=== PATIENT | female | born 1980 | race Caucasian/White ===

== ENCOUNTER 2017-04-11 17:18 | Emergency (ER) | payer OTHER, SELFPAY | END 2017-04-11 18:02 | disposition home or self-care (01) | PROVIDERS: Emergency Provider Emergency Medicine; Family Provider Emergency Medicine; Visit Provider Emergency Medicine | DX: S63.502A Unspecified sprain of left wrist, initial encounter (principal); S93.402A Sprain of unspecified ligament of left ankle, initial encounter; F17.210 Nicotine dependence, cigarettes, uncomplicated; W10.9XXA Fall (on) (from) unspecified stairs and steps, initial encounter; Y92.019 Unspecified place in single-family (private) house as the place of occurrence of the external cause; Z88.2 Allergy status to sulfonamides; K21.9 Gastro-esophageal reflux disease without esophagitis; E78.5 Hyperlipidemia, unspecified; F41.8 Other specified anxiety disorders | CPT/HCPCS: 73110; 73610; 99282 ==

== ENCOUNTER → 2017-05-20 13:01 | Outpatient (REF) | payer OTHER, SELFPAY ==
[2017-05-20 19:58] LABS: Amphetamine/Metha Screen,Urine Negative ng/mL (<1000); Barbiturates Screen,Urine Negative ng/mL (<200); Benzodiazepines Screen,Urine Negative ng/mL (200); Cannabinoid Screen,Urine Negative ng/mL (<50); Cocaine Screen,Urine Negative ng/g (<300); Methadone Screen,Urine Negative ng/mL (<300); Opiate Screen,Urine Positive ng/mL (<300); Phencyclidine Screen,Urine Negative ng/mL (<25)
== END ==
LOC: LAB 13:01
PROVIDERS: Visit Provider Emergency Medicine
DX: Z79.899 Other long term (current) drug therapy (principal)
CPT/HCPCS: 80305

== ENCOUNTER → 2017-06-12 08:49 | Outpatient (CLI) | payer OTHER, SELFPAY ==
--- NOTE | 2017-06-12 08:50 | XR_ITS ---
XR DEXA axial skeleton HISTORY: ITS.REASON: Osteopenia ORDERING PHYSICIAN: Enzo Riggs MD PATIENT AGE: 36 years COMPARISON: 12/06/2015 FINDINGS: The BMD measured at the left femoral neck is 0.792 g/cm squared with a T score of -1.8. This is considered Osteopenic according to the World Health Organization criteria. Fracture risk is Moderate. Treatment is advised. The L1 L4 density has a T score of -1.2 consistent with osteopenia. IMPRESSION: Osteopenia with moderate fracture risk. The lumbar spine density has increased by 1.3% and the hip density has decreased by 1.5% compared to the previous exam. Recommend follow-up exam in June 2019
--- NOTE | 2017-06-12 08:50 | XR_ITS ---
EXAM: XR thoracic spine 3V HISTORY: ITS.REASON: Back Pain COMPARISON: None FINDINGS: There is mild lower thoracic scoliosis convex left which measures 8 degrees by the Rouse technique. No fracture or dislocation. No congenital anomaly apparent. Minimal disc calcification is present at T9-T10 suggesting mild degenerative disc disease IMPRESSION: 1. Mild levoscoliosis 2. Mild thoracic spondylosis
== END ==
PROVIDERS: Family Provider Emergency Medicine; PCP Emergency Medicine; Visit Provider Emergency Medicine
DX: M85.80 Other specified disorders of bone density and structure, unspecified site (principal); M54.9 Dorsalgia, unspecified
CPT/HCPCS: 72072; 77080

== ENCOUNTER → 2017-06-16 12:23 | Outpatient (REF) | payer OTHER, SELFPAY ==
[2017-06-17 14:32] LABS: Amphetamine/Metha Screen,Urine Negative ng/mL (<1000); Barbiturates Screen,Urine Negative ng/mL (<200); Benzodiazepines Screen,Urine Negative ng/mL (200); Cannabinoid Screen,Urine Negative ng/mL (<50); Cocaine Screen,Urine Negative ng/g (<300); Methadone Screen,Urine Negative ng/mL (<300); Opiate Screen,Urine Positive ng/mL (<300); Phencyclidine Screen,Urine Negative ng/mL (<25)
== END ==
LOC: LAB 12:23
PROVIDERS: Visit Provider Emergency Medicine
DX: M54.9 Dorsalgia, unspecified (principal); Z79.899 Other long term (current) drug therapy
CPT/HCPCS: 80305

== ENCOUNTER 2017-07-17 09:27 | Emergency (ER) | payer OTHER, SELFPAY ==
[2017-07-17 09:30] VITALS: BP 108/69; PULSE 79; RESP 18; TEMP 36.9; O2SAT 98; BMI 21.2
--- NOTE | 2017-07-17 09:44 | HMH.EDUTC ---
[facility] [place] Clinical Impression: Eye problems Vomiting Qualifiers: Vomiting type: unspecified Vomiting Intractability: unspecified Nausea presence: with nausea Qualified Code(s): R11.2 - Nausea with vomiting, unspecified Disposition: Home, Self-Care Condition on Discharge: Good Instructions: DI for Hordeolum, Hordeolum Additional Instructions: Warm Compresses to eye Follow up with Dr Campuzano today, Call office for appointment [phone] Avoid make up Baby shampoo and warm water to clean eye and eyelids Return if needed Follow up with family doctor in 24-48 hours if no improvement or worsening of symptoms Referrals: Enzo Riggs MD [Primary Care Provider] - Fawad Campuzano [Other] (Follow up with Dr Campuzano today if you can get an appointment) Forms: Work/School Release Time of Disposition: 09:59 Medical Decision Making - Medical Records Medical records reviewed: Yes: I reviewed the patient's medical records. - Gilberto Inquiry Pt receiving controlled substance: No Gilberto was queried for this patient: No Vital Signs: 07/17/17 09:30 Temperature 98.4 F Temperature Source Temporal Artery Scan Pulse Rate [Right Brachial] 79 Respiratory Rate 18 Blood Pressure [Right Arm] 108/69 Blood Pressure Mean [Right Arm] 82 Blood Pressure Source [Right Arm] Automatic Cuff Blood Pressure Position [Right Arm] Sitting 02 Sat by Pulse Oximetry 98 Oxygen Delivery Method Room Air - Lab Data Lab results reviewed: Yes: I reviewed the patient's lab results. [facility] [place] - General Stated complaint: Vomiting,left eye swelled Time Seen by Provider: 07/17/17 09:30 Mode of Arrival: Family Vehicle Source of Information: Patient Limitations: No Limitations Description of Symptoms (Recalled from Triage Doc. by RN): c/o vomiting and swollen left eye HEENT Symptoms (Recalled from RN notes): Yes Resp Symptoms (Recalled from RN notes): No Skin Symptoms (Recalled from RN notes): No MS Symptoms (Recalled from RN notes): No Functional Status (Recalled from RN notes): n/a - History of Present Illness Provider Complaint: Patient states that she noticed that she was having some swelling in her left eye State that she feels like she has a knot in the left corner of her eye under her eyelid State that area is tender and she has been rubbing her eye alot. State that she woke up this morning and she had some vomiting State that she wasn't sure if there was a stomach bug going around - Related Data Home Medications Medication Instructions Recorded Confirmed Calcium Carbonate/Vitamin D3 1 tab PO DAILY 07/17/17 07/17/17 [Calcium 600 + Vit D Tablet] Hydrocodone/Acetaminophen 1 each PO BID 07/17/17 07/17/17 [Hydrocodone-Acetamin 5-325 mg] Allergies Allergy/AdvReac Type Severity Reaction Status Date / Time Sulfa (Sulfonamide Allergy Severe BURN ON Verified 06/16/17 15:58 Antibiotics) THE INSIDE [SULFA (SULFONAMIDE ANTIBIOTICS)] aspirin [ASPIRIN] Allergy Intermediate I-HIVES Verified 06/16/17 15:58 Estrogens [ESTROGENS] Allergy Intermediate BREAKOUT Verified 06/16/17 15:58 tramadol [TRAMADOL] Allergy Intermediate NAUSEATED Verified 06/16/17 15:58 - Worker's Comp Is this a Worker's Comp case?: No [facility] History I have reviewed the patient's past medical history: Yes Medical History: Reports:: Anxiety, Cancer, Osteoporosis Other Medical History: Reports: Fibromyalgia, Osteoporosis Other Surgeries: Yes: Cancer Surgery, Hysterectomy-Total Amputation: No Fractures: No - Social History Smoking Status: Current every day smoker Tobacco Type: cigarettes # Packs/Day (cigarettes): 2 #Yrs smoked (if former smoker): 24 Alcohol Intake: never Alcohol Intake Frequency:: 0-2 drinks per day Substance Use Type: denies use - Psychiatric History Expresses thoughts of harming self/others: None Suicide Plan Description: No Plan Pschychiatric History:: Reports:: Anxiety Family Hx:: Heart Attack, Cancer Comment: Mot
--- NOTE | 2017-07-17 09:47 | ED_ITS ---
[facility] – [place] Disposition Clinical Impression: Eye problems Vomiting Qualifiers: Vomiting type: unspecified Vomiting Intractability: unspecified Nausea presence : with nausea Qualified Code(s): R11.2 - Nausea with vomiting, unspecified Disposition: Home, Self-Care Condition on Discharge: Good Instructions: DI for Hordeolum, Hordeolum Additional Instructions: Warm Compresses to eye Follow up with Dr Campuzano today, Call office for appointment [phone] Avoid make up Baby shampoo and warm water to clean eye and eyelids Return if needed Follow up with family doctor in 24-48 hours if no improvement or worsening of symptoms Referrals: Enzo Riggs MD [Primary Care Provider] - Fawad Campuzano [Other] (Follow up with Dr Campuzano today if you can get an appointment) Forms: Work/School Release Time of Disposition: 09:59 Medical Decision Making - Medical Records Medical records reviewed: Yes: I reviewed the patient's medical records. - Gilberto Inquiry Pt receiving controlled substance: No Gilberto was queried for this patient: No Vital Signs: 07/17/17 09:30 Temperature 98.4 F Temperature Source Temporal Artery Scan Pulse Rate [Right Brachial] 79 Respiratory Rate 18 Blood Pressure [Right Arm] 108/69 Blood Pressure Mean [Right Arm] 82 Blood Pressure Source [Right Arm] Automatic Cuff Blood Pressure Position [Right Arm] Sitting 02 Sat by Pulse Oximetry 98 Oxygen Delivery Method Room Air - Lab Data Lab results reviewed: Yes: I reviewed the patient's lab results. [facility] – [place] HPI - General Stated complaint: Vomiting,left eye swelled Time Seen by Provider: 07/17/17 09:30 Mode of Arrival: Family Vehicle Source of Information: Patient Limitations: No Limitations Description of Symptoms (Recalled from Triage Doc. by RN): c/o vomiting and swollen left eye HEENT Symptoms (Recalled from RN notes): Yes Resp Symptoms (Recalled from RN notes): No Skin Symptoms (Recalled from RN notes): No MS Symptoms (Recalled from RN notes): No Functional Status (Recalled from RN notes): n/a - History of Present Illness Provider Complaint: Patient states that she noticed that she was having some swelling in her left eye State that she feels like she has a knot in the left corner of her eye under her eyelid State that area is tender and she has been rubbing her eye alot. State that she woke up this morning and she had some vomiting State that she wasn't sure if there was a stomach bug going around - Related Data Home Medications Medication Instructions Recorded Confirmed Calcium Carbonate/Vitamin D3 1 tab PO DAILY 07/17/17 07/17/17 [Calcium 600 + Vit D Tablet] Hydrocodone/Acetaminophen 1 each PO BID 07/17/17 07/17/17 [Hydrocodone-Acetamin 5-325 mg] Allergies Allergy/AdvReac Type Severity Reaction Status Date / Time Sulfa (Sulfonamide Allergy Severe BURN ON Verified 06/16/17 15:58 Antibiotics) THE INSIDE [SULFA (SULFONAMIDE ANTIBIOTICS)] aspirin [ASPIRIN] Allergy Intermediate I-HIVES Verified 06/16/17 15:58 Estrogens [ESTROGENS] Allergy Intermediate BREAKOUT Verified 06/16/17 15:58 tramadol [TRAMADOL] Allergy Intermediate NAUSEATED Verified 06/16/17 15:58 - Worker's Comp Is this a Worker's Comp case?: No [facility] History I have reviewed the patient's past medical history: Yes Medical History: Repor
[2017-07-17 10:07] VITALS: BP 108/69; PULSE 79; RESP 18; TEMP 36.9; O2SAT 98
== END 2017-07-17 10:10 | disposition home or self-care (01) ==
PROVIDERS: Emergency Provider Nurse Practitioner; Family Provider Emergency Medicine; PCP Emergency Medicine
DX: R11.2 Nausea with vomiting, unspecified (principal); H57.9 Unspecified disorder of eye and adnexa; M79.7 Fibromyalgia; Z88.2 Allergy status to sulfonamides; M85.80 Other specified disorders of bone density and structure, unspecified site; F17.210 Nicotine dependence, cigarettes, uncomplicated
CPT/HCPCS: 99201

== ENCOUNTER → 2017-07-20 15:43 | Outpatient (REF) | payer OTHER, SELFPAY ==
[2017-07-20 18:24] LABS: Amphetamine/Metha Screen,Urine Negative ng/mL (<1000); Barbiturates Screen,Urine Negative ng/mL (<200); Benzodiazepines Screen,Urine Negative ng/mL (200); Cannabinoid Screen,Urine Negative ng/mL (<50); Cocaine Screen,Urine Negative ng/g (<300); Methadone Screen,Urine Negative ng/mL (<300); Opiate Screen,Urine Positive ng/mL (<300); Phencyclidine Screen,Urine Negative ng/mL (<25)
== END ==
LOC: LAB 15:43
PROVIDERS: Visit Provider Nurse Practitioner Family
DX: Z79.899 Other long term (current) drug therapy (principal)
CPT/HCPCS: 80305

== ENCOUNTER → 2018-05-31 13:39 | Outpatient (CLI) | payer OTHER, SELFPAY ==
[2018-05-31 14:55] LABS: Amphetamine/Metha Screen,Urine Negative ng/mL (<1000); Barbiturates Screen,Urine Negative ng/mL (<200); Benzodiazepines Screen,Urine Negative ng/mL (<200); Cannabinoid Screen,Urine Negative ng/mL (<50); Cocaine Screen,Urine Negative ng/mL (<300); Methadone Screen,Urine Negative ng/mL (<300); Opiate Screen,Urine Positive ng/mL (<300); Phencyclidine Screen,Urine Negative ng/mL (<25)
== END ==
PROVIDERS: Visit Provider Emergency Medicine
DX: Z79.899 Other long term (current) drug therapy (principal)
CPT/HCPCS: 80305

== ENCOUNTER → 2018-06-08 09:15 | Outpatient (CLI) | payer OTHER, SELFPAY ==
--- NOTE | 2018-06-08 09:21 | XR_ITS ---
XR scoliosis survey CLINICAL INDICATION: ITS.REASON: back pain ORDERING PHYSICIAN: Enzo Riggs MD PATIENT AGE: 37 years Comparison: None FINDINGS: There is minimal upper thoracic curvature convex right at 4 degrees and minimal lower thoracic curvature convex left degrees. There is mild degenerative disc disease in the midthoracic spine. No bony congenital anomalies evident. IMPRESSION: Minimal thoracic scoliosis as described above
== END ==
PROVIDERS: PCP Emergency Medicine; Visit Provider Emergency Medicine
DX: M54.9 Dorsalgia, unspecified (principal)
CPT/HCPCS: 72081

== ENCOUNTER → 2018-06-28 14:08 | Outpatient (CLI) | payer OTHER, SELFPAY ==
[2018-06-28 14:35] LABS: Amphetamine/Metha Screen,Urine Negative ng/mL (<1000); Barbiturates Screen,Urine Negative ng/mL (<200); Benzodiazepines Screen,Urine Negative ng/mL (<200); Cannabinoid Screen,Urine Negative ng/mL (<50); Cocaine Screen,Urine Negative ng/mL (<300); Methadone Screen,Urine Negative ng/mL (<300); Opiate Screen,Urine Positive ng/mL (<300); Phencyclidine Screen,Urine Negative ng/mL (<25)
== END ==
PROVIDERS: Visit Provider Emergency Medicine
DX: Z79.899 Other long term (current) drug therapy (principal)
CPT/HCPCS: 80305

== ENCOUNTER → 2018-08-27 15:54 | Outpatient (CLI) | payer OTHER, SELFPAY ==
[2018-08-27 16:24] LABS: Amphetamine/Metha Screen,Urine Negative ng/mL (<1000); Barbiturates Screen,Urine Negative ng/mL (<200); Benzodiazepines Screen,Urine Negative ng/mL (<200); Cannabinoid Screen,Urine Negative ng/mL (<50); Cocaine Screen,Urine Negative ng/mL (<300); Methadone Screen,Urine Negative ng/mL (<300); Opiate Screen,Urine Positive ng/mL (<300); Phencyclidine Screen,Urine Negative ng/mL (<25)
== END ==
PROVIDERS: Visit Provider Emergency Medicine
DX: Z79.899 Other long term (current) drug therapy (principal)
CPT/HCPCS: 80305

== ENCOUNTER → 2018-09-14 12:50 | Outpatient (CLI) | payer OTHER, SELFPAY | PROVIDERS: PCP Emergency Medicine; Visit Provider Emergency Medicine | DX: M54.9 Dorsalgia, unspecified (principal) ==

== ENCOUNTER → 2018-10-27 13:51 | Outpatient (CLI) | payer OTHER, SELFPAY ==
[2018-10-27 15:06] LABS: Amphetamine/Metha Screen,Urine Negative ng/mL (<1000); Barbiturates Screen,Urine Negative ng/mL (<200); Benzodiazepines Screen,Urine Negative ng/mL (<200); Cannabinoid Screen,Urine Negative ng/mL (<50); Cocaine Screen,Urine Negative ng/mL (<300); Methadone Screen,Urine Negative ng/mL (<300); Opiate Screen,Urine Negative ng/mL (<300); Phencyclidine Screen,Urine Negative ng/mL (<25)
[2018-11-04 08:15] LABS: Opiates Negative (Cutoff=100)
== END ==
PROVIDERS: Visit Provider Emergency Medicine
DX: Z79.891 Long term (current) use of opiate analgesic (principal); E22.2 Syndrome of inappropriate secretion of antidiuretic hormone; Z79.899 Other long term (current) drug therapy
CPT/HCPCS: 80305; 80361; 80365; G0480

== ENCOUNTER → 2018-12-22 17:38 | Outpatient (CLI) | payer OTHER, SELFPAY ==
[2018-12-22 18:47] LABS: Amphetamine/Metha Screen,Urine Negative ng/mL (<1000); Barbiturates Screen,Urine Negative ng/mL (<200); Benzodiazepines Screen,Urine Negative ng/mL (<200); Cannabinoid Screen,Urine Negative ng/mL (<50); Cocaine Screen,Urine Negative ng/mL (<300); Methadone Screen,Urine Negative ng/mL (<300); Opiate Screen,Urine Positive ng/mL (<300); Phencyclidine Screen,Urine Negative ng/mL (<25)
== END ==
PROVIDERS: Visit Provider Emergency Medicine
DX: M54.16 Radiculopathy, lumbar region (principal)
CPT/HCPCS: 80305

== ENCOUNTER → 2019-02-18 16:51 | Outpatient (CLI) | payer OTHER, SELFPAY ==
[2019-02-18 20:15] LABS: Amphetamine/Metha Screen,Urine Negative ng/mL (<1000); Barbiturates Screen,Urine Negative ng/mL (<200); Benzodiazepines Screen,Urine Negative ng/mL (<200); Cannabinoid Screen,Urine Negative ng/mL (<50); Cocaine Screen,Urine Negative ng/mL (<300); Methadone Screen,Urine Negative ng/mL (<300); Opiate Screen,Urine Positive ng/mL (<300); Phencyclidine Screen,Urine Negative ng/mL (<25)
== END ==
PROVIDERS: Visit Provider Emergency Medicine
DX: Z79.899 Other long term (current) drug therapy (principal)
CPT/HCPCS: 80305

== ENCOUNTER → 2019-04-29 14:24 | Outpatient (CLI) | payer OTHER, SELFPAY ==
[2019-04-29 15:53] LABS: Amphetamine/Metha Screen,Urine Negative ng/mL (<1000); Barbiturates Screen,Urine Negative ng/mL (<200); Benzodiazepines Screen,Urine Negative ng/mL (<200); Cannabinoid Screen,Urine Negative ng/mL (<50); Cocaine Screen,Urine Negative ng/mL (<300); Methadone Screen,Urine Negative ng/mL (<300); Opiate Screen,Urine Positive ng/mL (<300); Phencyclidine Screen,Urine Negative ng/mL (<25)
== END ==
PROVIDERS: Visit Provider Emergency Medicine
DX: Z79.899 Other long term (current) drug therapy (principal)
CPT/HCPCS: 80305

== ENCOUNTER → 2019-05-25 18:24 | Outpatient (CLI) | payer OTHER, SELFPAY ==
[2019-05-25 19:34] LABS: Amphetamine/Metha Screen,Urine Negative ng/mL (<1000); Barbiturates Screen,Urine Negative ng/mL (<200); Benzodiazepines Screen,Urine Negative ng/mL (<200); Cannabinoid Screen,Urine Negative ng/mL (<50); Cocaine Screen,Urine Negative ng/mL (<300); Methadone Screen,Urine Negative ng/mL (<300); Opiate Screen,Urine Positive ng/mL (<300); Phencyclidine Screen,Urine Negative ng/mL (<25)
== END ==
PROVIDERS: Visit Provider Emergency Medicine
DX: R11.10 Vomiting, unspecified (principal)
CPT/HCPCS: 80305

== ENCOUNTER → 2019-12-14 07:55 | Outpatient (CLI) | payer OTHER, SELFPAY ==
--- NOTE | 2019-12-14 08:01 | MR_ITS ---
PROCEDURE: MR LUMBAR SPINE WO CON CLINICAL INDICATION: back pain LBP XYRS. FELL OUT OF TOBACCO BARN YEARS AGO AND PATIENT STATES HER VERTEBRA FUSED TOGETHER. 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 3-D MIP and myelographic images are also rendered and reviewed FINDINGS: There is normal alignment. The spinal cord ends at the T12-L1 level. There are only 4 lumbar segments. No acute fracture or dislocation is evident. The disc spaces are well preserved. L1-L2, L2-L3, and L3-L4 have an unremarkable appearance. There is only minimal bulging disc at L4/S1. No disc herniation canal stenosis or other significant anomaly is evident. IMPRESSION: Essentially unremarkable MRI of the lumbar spine. There are 4 lumbar segments. There is minimal bulging disc at L4/S1 the with overall no significant change compared to the previous exam. No canal stenosis or extruded herniated disc evident Dictated by: Reji Arellano MD 12/15/2019 13:33 Reji Arellano MD in [place] 12/15/2019 13:33
== END ==
PROVIDERS: PCP Emergency Medicine; Visit Provider Emergency Medicine
DX: M54.16 Radiculopathy, lumbar region (principal)
CPT/HCPCS: 72148; 76376

== ENCOUNTER → 2020-01-19 15:20 | Outpatient (POV) | payer OTHER, SELFPAY ==
[2020-01-19 15:40] VITALS: BP 121/81; PULSE 84; RESP 20; TEMP 36.4; O2SAT 98; BMI 20.5
--- NOTE | 2020-01-19 16:10 | HMH.PMCON ---
Assessment and Plan (1) Back pain Status: Chronic Category: Medical Code(s): M54.9 - Dorsalgia, unspecified (2) Sacroiliitis Status: Chronic Category: Medical Code(s): M46.1 - Sacroiliitis, not elsewhere classified - Assessment and plan all Dx Assessment and Plan for all problems:: Patient reports that she is not interested in injective therapy at this time. She and I did discuss that she likely has sacroiliitis, however, the patient is not been getting any relief from her injections. The only other option that we could offer the patient is possible implanted device following a lumbar epidural steroid injection. She does have tenderness noted over bilateral SI joints along with a positive Vale, Linsey's, distraction test. She and I also discussed possible corner lock procedure. Chiropractic therapy seems to be the only thing given her relief at this time. She is managed with oral medications as well her primary care provider. Patient was given educational information regarding corner lock and spinal cord stimulation at her request. We will plan to see her back in the clinic if she does decide to undergo injective therapy. She has been instructed to contact clinic if she has any concerns. The patient and I specifically discussed risk factors for COVID19. These risks include, but are not limited to age greater than 60, heart or lung disease, diabetes, immunosuppression, and travel. We also discussed NSAIDs may worsen COVID19 infection or symptoms. Patient should not use NSAIDs to treat COVID19 signs or symptoms. Patient was also informed that any type of corticosteroid of any form (oral or injection) will decrease the patient's immune system response and may increase the likelihood of COVID19 infection and symptoms. HPI - Data of Consult Patient: new to practice Consult date: 01/19/20 Requesting Physician: Sophie Barrera APRN Primary Care Provider: Enzo Riggs MD - Consult Narrative Reason for consult: Low back pain, bilateral hip pain, bilateral groin pain History of present illness: Ms. Mayes is a 39 year old female who presents today for consultation for chronic low back pain with radiation into her bilateral hips and bilateral groin. Patient reports that she fell off of the tobacco barn many years ago and had a coccygeal fracture. She says that she is had chronic pain since then. Patient says that she does feel herself off balance when walking leaning more to the right side. She did see angelique fine and pain management for injections in the past. She says she did do 2 rounds of SI injections along with epidural steroid injections and got no relief. Patient says she, in fact, had worsening pain after the injections. She did try physical therapy with no relief. Patient has had chiropractic therapy which she says does give her relief, however. She does rate her pain a 6 out of 10 today. She is managed with hydrocodone and gabapentin per Dr. Riggs. CC: Sophie Barrera APRN [facility] History I have reviewed the patient's past medical history: Yes Medical History: Reports:: Anxiety, Osteoporosis Denies:: Cancer, Diabetes Mellitus Type 1, Diabetes Mellitus Type 2, MRSA *Have you ever received a pneumonia vaccine?: No *Have you received a flu vaccine this season?: No Other Medical History: Reports: Fibromyalgia, Osteoporosis Other Surgeries: Yes: Appendectomy, Cancer Surgery, Hysterectomy-Total, Other (partial liverectomy) Amputation: No Fractures: No - *Social History Smoking Status: Current every day smoker Tobacco Type: cigarettes # Packs/Day (cigarettes): 1 #Yrs smoked (if former smoker): 24 Alcohol Intake: current Alcohol Intake Frequency:: 0-2 drinks per day Substance Use Type: denies use *Occupational Status:: employed Housing: house Household Members: other *Travel in the last 8 weeks: None - Psychiatric History Pschychiatric History:: Reports:: Anxiety Family Hx:: Heart Attack
== END ==
PROVIDERS: PCP Emergency Medicine; Visit Provider Clinical Nurse Specialist Family Health
DX: M54.9 Dorsalgia, unspecified (principal); M46.1 Sacroiliitis, not elsewhere classified
CPT/HCPCS: 99202

== ENCOUNTER → 2020-05-07 13:27 | Outpatient (CLI) | payer OTHER, SELFPAY ==
[2020-05-07 20:13] LABS: Amphetamine/Metha Screen,Urine Negative ng/ml (<1000)
[2020-05-07 20:14] LABS: Barbiturates Screen,Urine Negative ng/ml (<200)
[2020-05-07 20:15] LABS: Benzodiazepines Screen,Urine Negative ng/ml (<200); Cannabinoid Screen,Urine Negative ng/ml (<50)
[2020-05-07 20:18] LABS: Cocaine Screen,Urine Negative ng/ml (<300); Methadone Screen,Urine Negative ng/ml (<300)
[2020-05-07 20:19] LABS: Opiate Screen,Urine Positive ng/ml (<300)
[2020-05-07 20:20] LABS: Phencyclidine Screen,Urine Negative ng/ml (<25)
== END ==
PROVIDERS: Visit Provider Emergency Medicine
DX: Z79.899 Other long term (current) drug therapy (principal)
CPT/HCPCS: 80305

== ENCOUNTER → 2020-07-03 14:38 | Outpatient (CLI) | payer OTHER, SELFPAY ==
[2020-07-03 14:59] LABS: Barbiturates Screen,Urine Negative ng/ml (<200)
[2020-07-03 15:00] LABS: Amphetamine/Metha Screen,Urine Negative ng/ml (<1000); Benzodiazepines Screen,Urine Negative ng/ml (<200)
[2020-07-03 15:01] LABS: Cannabinoid Screen,Urine Negative ng/ml (<50)
[2020-07-03 15:02] LABS: Cocaine Screen,Urine Negative ng/ml (<300); Methadone Screen,Urine Negative ng/ml (<300)
[2020-07-03 15:03] LABS: Opiate Screen,Urine Positive ng/ml (<300)
[2020-07-03 15:04] LABS: Phencyclidine Screen,Urine Negative ng/ml (<25)
== END ==
PROVIDERS: Visit Provider Emergency Medicine
DX: Z79.899 Other long term (current) drug therapy (principal)
CPT/HCPCS: 80305

== ENCOUNTER → 2020-09-03 13:47 | Outpatient (CLI) | payer OTHER, SELFPAY ==
[2020-09-03 14:32] LABS: Barbiturates Screen,Urine Negative ng/ml (<200)
[2020-09-03 14:33] LABS: Amphetamine/Metha Screen,Urine Negative ng/ml (<1000); Benzodiazepines Screen,Urine Negative ng/ml (<200)
[2020-09-03 14:34] LABS: Cannabinoid Screen,Urine Negative ng/ml (<50)
[2020-09-03 14:35] LABS: Cocaine Screen,Urine Negative ng/ml (<300); Methadone Screen,Urine Negative ng/ml (<300)
[2020-09-03 14:36] LABS: Opiate Screen,Urine Positive ng/ml (<300); Phencyclidine Screen,Urine Negative ng/ml (<25)
== END ==
PROVIDERS: Visit Provider Emergency Medicine
DX: M46.1 Sacroiliitis, not elsewhere classified (principal)
CPT/HCPCS: 80305

== ENCOUNTER → 2020-11-29 08:51 | Outpatient (CLI) | payer OTHER, SELFPAY ==
[2020-11-29 09:39] LABS: Amphetamine/Metha Screen,Urine Negative ng/ml (<1000)
[2020-11-29 09:40] LABS: Barbiturates Screen,Urine Negative ng/ml (<200); Benzodiazepines Screen,Urine Negative ng/ml (<200)
[2020-11-29 09:41] LABS: Cannabinoid Screen,Urine Negative ng/ml (<50); Cocaine Screen,Urine Negative ng/ml (<300)
[2020-11-29 09:42] LABS: Methadone Screen,Urine Negative ng/ml (<300)
[2020-11-29 09:43] LABS: Opiate Screen,Urine Positive ng/ml (<300); Phencyclidine Screen,Urine Negative ng/ml (<25)
== END ==
PROVIDERS: Visit Provider Emergency Medicine
DX: M46.1 Sacroiliitis, not elsewhere classified (principal)
CPT/HCPCS: 80305

== ENCOUNTER → 2021-01-23 18:02 | Outpatient (CLI) | payer OTHER, SELFPAY ==
[2021-01-23 19:20] LABS: Amphetamine/Metha Screen,Urine Negative ng/ml (<1000)
[2021-01-23 19:21] LABS: Barbiturates Screen,Urine Negative ng/ml (<200); Benzodiazepines Screen,Urine Negative ng/ml (<200)
[2021-01-23 19:22] LABS: Cannabinoid Screen,Urine Negative ng/ml (<50)
[2021-01-23 19:23] LABS: Cocaine Screen,Urine Negative ng/ml (<300); Methadone Screen,Urine Negative ng/ml (<300)
[2021-01-23 19:24] LABS: Opiate Screen,Urine Positive ng/ml (<300)
[2021-01-23 19:25] LABS: Phencyclidine Screen,Urine Negative ng/ml (<25)
== END ==
PROVIDERS: Visit Provider Emergency Medicine
DX: Z79.899 Other long term (current) drug therapy (principal)
CPT/HCPCS: 80305

== ENCOUNTER → 2021-03-19 13:53 | Outpatient (CLI) | payer OTHER, SELFPAY ==
[2021-03-19 14:31] LABS: Amphetamine/Metha Screen,Urine Negative ng/ml (<1000); Barbiturates Screen,Urine Negative ng/ml (<200); Benzodiazepines Screen,Urine Negative ng/ml (<200); Cannabinoid Screen,Urine Negative ng/ml (<50); Cocaine Screen,Urine Negative ng/ml (<300); Methadone Screen,Urine Negative ng/ml (<300); Opiate Screen,Urine Positive ng/ml (<300); Phencyclidine Screen,Urine Negative ng/ml (<25)
== END ==
PROVIDERS: Visit Provider Emergency Medicine
DX: M54.9 Dorsalgia, unspecified (principal)
CPT/HCPCS: 80305

== ENCOUNTER → 2021-05-15 17:57 | Outpatient (CLI) | payer OTHER, SELFPAY ==
[2021-05-15 17:47] LABS: Amphetamine/Metha Screen,Urine Negative ng/ml (<1000); Basophils # 0.1 K/mm3 (0-0.2); Basophils % 1.7 % (0.1-2.0); Eosinophils # 0.2 K/mm3 (0.0-0.4); Eosinophils % 2.7 % (0.1-12.0); Hemoglobin 14.4 g/dL (12.2-16.2); Lymphocytes # 3.2 K/mm3 (0.7-4.5); Lymphocytes % 44.9 % (10-50); Mean Corpuscular HGB Conc 31.2 g/dL (31.8-35.4); Mean Corpuscular Hemoglobin 29.9 pg (27.0-31.2); Mean Corpuscular Volume 95.9 fl (81-99); Mean Platelet Volume 9.5 fl (7.4-10.4); Monocytes # 0.5 K/mm3 (0.1-1.0); Monocytes % 6.4 % (1.7-9.3); Neutrophils # 3.2 K/mm3 (1.8-7.8); Neutrophils % 44.2 % (37.0-80.0); Platelet Count 370 K/mm3 (142-424); White Blood Count 7.2 K/mm3 (4.8-10.8)
[2021-05-15 17:48] LABS: Barbiturates Screen,Urine Negative ng/ml (<200); Benzodiazepines Screen,Urine Negative ng/ml (<200)
[2021-05-15 17:49] LABS: Cannabinoid Screen,Urine Negative ng/ml (<50); Cocaine Screen,Urine Negative ng/ml (<300)
[2021-05-15 17:50] LABS: Methadone Screen,Urine Negative ng/ml (<300)
[2021-05-15 17:51] LABS: Opiate Screen,Urine Positive ng/ml (<300); Phencyclidine Screen,Urine Negative ng/ml (<25)
[2021-05-15 18:05] LABS: Alanine Aminotransferase 15 U/L (12-78); Albumin Level 4.8 g/dl (3.5-5.0); Albumin/Globulin Ratio 1.8 (1.1-1.8); Alkaline Phosphatase 76 U/L (38-126); Anion Gap 12.8 mEq/L (5-15); Aspartate Amino Transferase 25 U/L (14-36); Bilirubin,Total 0.4 mg/dl (0.2-1.3); Blood Urea Nitrogen 9 mg/dl (7-17); Carbon Dioxide 28 mmol/L (22.0-30.0); Chloride 101 mmol/L (98-107); Chol/HDL Ratio 5.7 (1-3.5); Cholesterol 238 mg/dl (140-200); Estimated Glomerular Filt Rate 111 ml/min (>60); GFR (African American) 134 ML/MIN (>60); Globulin 2.7 g/dL (1.3-3.2); Glucose 83 mg/dl (74-100); HDL Cholesterol 42 mg/dl (40-60); Potassium 4.8 mmoL/L (3.5-5.1); Sodium 137 mmol/L (136-145); Total Protein,Serum 7.5 g/dl (6.3-8.2); Triglycerides 250 mg/dl (30-150); VLDL Cholesterol 50 mg/dL (0-40)
[2021-05-15 18:16] LABS: Direct LDL Cholesterol 135.17 mg/dL (100-129)
[2021-05-15 18:21] LABS: Free T4 (Free Thyroxine) 1.12 ng/dl (0.78-2.19)
[2021-05-15 18:22] LABS: 25-OH Vitamin D, Total 25.2 ng/mL (30-100)
[2021-05-15 18:36] LABS: Thyroid Stimulating Hormone 1.85 uIU/mL (0.465-4.68)
== END ==
PROVIDERS: Visit Provider Emergency Medicine
DX: Z00.00 Encounter for general adult medical examination without abnormal findings (principal); Z79.899 Other long term (current) drug therapy; E55.9 Vitamin D deficiency, unspecified
CPT/HCPCS: 80053; 80061; 80305; 82306; 84439; 84443; 85025

== ENCOUNTER → 2021-10-28 15:08 | Outpatient (CLI) | payer OTHER, SELFPAY ==
[2021-10-28 15:12] LABS: Amphetamine/Metha Screen,Urine Negative ng/ml (<1000)
[2021-10-28 15:13] LABS: Barbiturates Screen,Urine Negative ng/ml (<200); Cannabinoid Screen,Urine Negative ng/ml (<50)
[2021-10-28 15:14] LABS: Benzodiazepines Screen,Urine Negative ng/ml (<200)
[2021-10-28 15:15] LABS: Cocaine Screen,Urine Negative ng/ml (<300); Methadone Screen,Urine Negative ng/ml (<300)
[2021-10-28 15:16] LABS: Opiate Screen,Urine Positive ng/ml (<300)
[2021-10-28 15:18] LABS: Phencyclidine Screen,Urine Negative ng/ml (<25)
== END ==
PROVIDERS: Visit Provider Emergency Medicine
DX: Z79.899 Other long term (current) drug therapy (principal)
CPT/HCPCS: 80305

== ENCOUNTER → 2021-12-25 06:15 | Outpatient (CLI) | payer OTHER, SELFPAY ==
[2021-12-25 18:23] LABS: Amphetamine/Metha Screen,Urine Negative ng/ml (<1000); Barbiturates Screen,Urine Negative ng/ml (<200)
[2021-12-25 18:24] LABS: Benzodiazepines Screen,Urine Negative ng/ml (<200)
[2021-12-25 18:25] LABS: Cannabinoid Screen,Urine Negative ng/ml (<50); Cocaine Screen,Urine Negative ng/ml (<300)
[2021-12-25 18:26] LABS: Methadone Screen,Urine Negative ng/ml (<300); Opiate Screen,Urine Positive ng/ml (<300)
[2021-12-25 18:27] LABS: Phencyclidine Screen,Urine Negative ng/ml (<25)
== END ==
PROVIDERS: PCP Emergency Medicine; Visit Provider Emergency Medicine
DX: Z79.899 Other long term (current) drug therapy (principal)
CPT/HCPCS: 80305

== ENCOUNTER → 2022-02-21 13:07 | Outpatient (CLI) | payer OTHER, SELFPAY ==
[2022-02-21 18:26] LABS: Amphetamine/Metha Screen,Urine Negative ng/ml (<1000)
[2022-02-21 18:27] LABS: Barbiturates Screen,Urine Negative ng/ml (<200); Benzodiazepines Screen,Urine Negative ng/ml (<200)
[2022-02-21 18:31] LABS: Cannabinoid Screen,Urine Negative ng/ml (<50); Cocaine Screen,Urine Negative ng/ml (<300)
[2022-02-21 18:32] LABS: Methadone Screen,Urine Negative ng/ml (<300)
[2022-02-21 18:33] LABS: Opiate Screen,Urine Positive ng/ml (<300); Phencyclidine Screen,Urine Negative ng/ml (<25)
== END ==
PROVIDERS: PCP Emergency Medicine; Visit Provider Emergency Medicine
DX: Z76.0 Encounter for issue of repeat prescription (principal); Z79.899 Other long term (current) drug therapy
CPT/HCPCS: 80305

== ENCOUNTER → 2022-04-21 13:00 | Outpatient (CLI) | payer OTHER, SELFPAY ==
[2022-04-21 16:38] LABS: Amphetamine/Metha Screen,Urine Negative ng/ml (<1000)
[2022-04-21 16:39] LABS: Barbiturates Screen,Urine Negative ng/ml (<200); Benzodiazepines Screen,Urine Negative ng/ml (<200)
[2022-04-21 16:40] LABS: Cannabinoid Screen,Urine Negative ng/ml (<50)
[2022-04-21 16:41] LABS: Cocaine Screen,Urine Negative ng/ml (<300)
[2022-04-21 16:42] LABS: Methadone Screen,Urine Negative ng/ml (<300)
[2022-04-21 16:43] LABS: Opiate Screen,Urine Positive ng/ml (<300); Phencyclidine Screen,Urine Negative ng/ml (<25)
== END ==
PROVIDERS: PCP Emergency Medicine; Visit Provider Emergency Medicine
DX: Z79.899 Other long term (current) drug therapy (principal)
CPT/HCPCS: 80305

== ENCOUNTER 2022-06-10 17:29 | Emergency (ER) | payer OTHER, SELFPAY ==
[2022-06-10 17:55] VITALS: BP 124/73; PULSE 84; RESP 22; TEMP 37; O2SAT 97; BMI 22.1
--- NOTE | 2022-06-10 18:05 | EXP.UTC ---
Discharge Plan Disposition Patient Disposition: Home, Self-Care Condition: Good Prescriptions Prescriptions: New benzonatate 100 mg capsule 100 mg PO TID PRN (Reason: cough) Qty: 30 0RF methylprednisolone [Medrol (Mau)] 4 mg tablets,dose pack See Rx Instructions .Route .COMPLEX 6 Days Qty: 21 0RF Rx Instructions: taper pack; amoxicillin-pot clavulanate 875-125 mg Tablet 1 tab PO Q12H Qty: 20 0RF No Action diclofenac sodium 1 % gel 2 g TOPICAL QID Qty: 100 0RF Rx Instructions: apply to single elbow, wrist or hand; for hand includes palm/fingers/back of hand ergocalciferol (vitamin D2) 1,250 mcg (50,000 unit) capsule 1,250 mcg PO WEEKLY Qty: 9 4RF clonazepam 0.5 mg tablet 0.5 mg PO BID Qty: 60 1RF gabapentin 600 mg tablet 600 mg PO TID Qty: 90 1RF hydrocodone-acetaminophen 7.5-325 mg tablet 1 tab PO Q6H PRN (Reason: pain) Qty: 120 0RF fluticasone propionate 50 mcg/actuation spray,suspension See Rx Instructions .ROUTE .COMPLEX Qty: 16 2RF Dose Instruction: USE 2 SPRAYS IN EACH NOSTRIL EVERY DAY Rx Instructions: USE 2 SPRAYS IN EACH NOSTRIL EVERY DAY Referrals Follow up/Referrals: Enzo Riggs MD [Primary Care Provider] - See instructions Activity Restrictions/Add. Instructions Additional Instructions/Restrictions: *Monitor Temp, Over the counter Motrin or Tylenol as directed/as needed Tylenol every 4 hours and Motrin every 6 hours (as long as your family doctor has told you that you can take it) for fever or pain. and straight to ER if unable to lower temp less than 101.0 after medication given *Warm salt water gargles may help to soothe the throat *Throat Lozenges? *Warm fluids like tea with honey may help to soothe the throat? *Sleep elevated *Humidifier/Vaporizer *Flonase 2 sprays in each nostril daily but be aware that it may take 2-3 days before you notice improvement Follow up IMMEDIATELY for new or worsening symptoms or no Noticeable improvement over the next 48-72 hours. 911 for difficulty breathing or swallowing Clinical Impressions Clinical Impression: Sinusitis Instructions Patient Instructions: DI for Sinusitis, Sinusitis Discharge ED Provider: Lainey Gregory [facility] [place] General Stated complaint: congestion cough Time Seen by Provider: 06/10/22 18:06 History of Present Illness Provider Complaint: Patient states that she has been having sinus congestion and pressure for almost a week now that has got worse over the last few days and feels like it is draining in the back of her throat and pressure worse in her sinuses so she came in Related Data Previous Rx's Medication Instructions Recorded diclofenac sodium 1 % topical gel 2 g topical QID #100 grams 10/28/21 ergocalciferol (vitamin D2) 1,250 1,250 mcg PO WEEKLY #9 caps 10/28/21 mcg (50,000 unit) capsule clonazepam 0.5 mg tablet 0.5 mg PO BID #60 tabs 04/21/22 gabapentin 600 mg tablet 600 mg PO TID #90 tabs 04/21/22 hydrocodone 7.5 mg-acetaminophen 1 tab PO Q6H PRN pain #120 tabs 04/21/22 325 mg tablet fluticasone propionate 50 See Rx Instructions .Route 05/20/22 mcg/actuation nasal .COMPLEX #16 grams spray,suspension amoxicillin 875 mg-potassium 1 tab PO Q12H #20 tabs 06/10/22 clavulanate 125 mg tablet benzonatate 100 mg capsule 100 mg PO TID PRN cough #30 caps 06/10/22 methylprednisolone 4 mg tablets in See Rx Instructions .Route 06/10/22 a dose pack (Medrol (Mau)) .COMPLEX 6 days #21 tabs Allergies Allergy/AdvReac Type Severity Reaction Status Date / Time Sulfa (Sulfonamide Allergy Severe BURN ON Verified 04/21/22 13:09 Antibiotics) THE INSIDE [SULFA (SULFONAMIDE ANTIBIOTICS)] aspirin [ASPIRIN] Allergy Intermediate I-HIVES Verified 04/21/22 13:09 Estrogens [ESTROGENS] Allergy Intermediate BREAKOUT Verified 04/21/22 13:09 tramadol [TRAMADOL] Allergy Intermediate NAUSEATED Verified 04/21/22 13:09 [facility]
[2022-06-10 18:19] VITALS: BP 124/73; PULSE 84; RESP 22; TEMP 37; O2SAT 97
== END 2022-06-10 18:22 | disposition home or self-care (01) ==
PROVIDERS: Emergency Provider Nurse Practitioner; PCP Emergency Medicine
DX: J32.9 Chronic sinusitis, unspecified (principal)
CPT/HCPCS: 99212; 99213; G0463

== ENCOUNTER → 2022-08-05 23:16 | Outpatient (CLI) | payer OTHER, SELFPAY ==
[2022-08-05 19:49] LABS: Amphetamine/Metha Screen,Urine Negative ng/ml (<1000); Barbiturates Screen,Urine Negative ng/ml (<200)
[2022-08-05 19:50] LABS: Benzodiazepines Screen,Urine Negative ng/ml (<200)
[2022-08-05 19:51] LABS: Cannabinoid Screen,Urine Negative ng/ml (<50)
[2022-08-05 19:58] LABS: Cocaine Screen,Urine Negative ng/ml (<300); Methadone Screen,Urine Negative ng/ml (<300)
[2022-08-05 19:59] LABS: Opiate Screen,Urine Positive ng/ml (<300)
[2022-08-05 20:00] LABS: Phencyclidine Screen,Urine Negative ng/ml (<25)
== END ==
PROVIDERS: PCP Emergency Medicine; Visit Provider Emergency Medicine
DX: Z79.899 Other long term (current) drug therapy (principal)
CPT/HCPCS: 80305

== ENCOUNTER → 2022-10-13 23:38 | Outpatient (CLI) | payer OTHER, SELFPAY ==
[2022-10-13 19:11] LABS: Benzodiazepines Screen,Urine Negative ng/ml (<200); Cannabinoid Screen,Urine Negative ng/ml (<50)
[2022-10-13 19:12] LABS: Cocaine Screen,Urine Negative ng/ml (<300); Methadone Screen,Urine Negative ng/ml (<300)
[2022-10-13 19:13] LABS: Opiate Screen,Urine Positive ng/ml (<300)
[2022-10-13 19:14] LABS: Phencyclidine Screen,Urine Negative ng/ml (<25)
[2022-10-13 19:19] LABS: Amphetamine/Metha Screen,Urine Negative ng/ml (<1000); Barbiturates Screen,Urine Negative ng/ml (<200)
== END ==
PROVIDERS: PCP Emergency Medicine; Visit Provider Emergency Medicine
DX: F41.9 Anxiety disorder, unspecified (principal)
CPT/HCPCS: 80305

== ENCOUNTER → 2022-12-10 15:45 | Outpatient (CLI) | payer OTHER, SELFPAY ==
[2022-12-10 16:51] LABS: Amphetamine/Metha Screen,Urine Negative ng/ml (<1000)
[2022-12-10 16:52] LABS: Barbiturates Screen,Urine Negative ng/ml (<200)
[2022-12-10 16:58] LABS: Benzodiazepines Screen,Urine Negative ng/ml (<200)
[2022-12-10 16:59] LABS: Methadone Screen,Urine Negative ng/ml (<300)
[2022-12-10 17:00] LABS: Cocaine Screen,Urine Negative ng/ml (<300); Opiate Screen,Urine Positive ng/ml (<300)
[2022-12-10 17:01] LABS: Phencyclidine Screen,Urine Negative ng/ml (<25)
[2022-12-10 17:43] LABS: Cannabinoid Screen,Urine Negative ng/ml (<50)
== END ==
PROVIDERS: PCP Emergency Medicine; Visit Provider Emergency Medicine
DX: Z79.899 Other long term (current) drug therapy (principal)
CPT/HCPCS: 80305

== ENCOUNTER → 2023-02-04 15:53 | Outpatient (CLI) | payer OTHER, SELFPAY ==
[2023-02-04 16:00] LABS: Amphetamine/Metha Screen,Urine Negative ng/ml (<1000)
[2023-02-04 16:01] LABS: Barbiturates Screen,Urine Negative ng/ml (<200); Benzodiazepines Screen,Urine Negative ng/ml (<200)
[2023-02-04 16:02] LABS: Cannabinoid Screen,Urine Negative ng/ml (<50)
[2023-02-04 16:03] LABS: Cocaine Screen,Urine Negative ng/ml (<300)
[2023-02-04 16:04] LABS: Methadone Screen,Urine Negative ng/ml (<300)
[2023-02-04 16:05] LABS: Opiate Screen,Urine Positive ng/ml (<300); Phencyclidine Screen,Urine Negative ng/ml (<25)
== END ==
PROVIDERS: PCP Emergency Medicine; Visit Provider Emergency Medicine
DX: Z79.899 Other long term (current) drug therapy (principal)
CPT/HCPCS: 80305

== ENCOUNTER → 2023-04-01 23:11 | Outpatient (CLI) | payer OTHER, SELFPAY ==
[2023-04-01 18:32] LABS: Basophils # 0.1 K/mm3 (0-0.2); Basophils % 0.7 % (0.1-2.0); Eosinophils # 0.2 K/mm3 (0.0-0.4); Eosinophils % 2.3 % (0.1-12.0); Hematocrit 41.3 % (37.0-47.0); Hemoglobin 13.7 g/dL (12.2-16.2); Lymphocytes # 2.9 K/mm3 (0.7-4.5); Lymphocytes % 31.1 % (10-50); Mean Corpuscular HGB Conc 33.1 g/dL (31.8-35.4); Mean Corpuscular Hemoglobin 30.5 pg (27.0-31.2); Mean Platelet Volume 9.3 fl (7.4-10.4); Monocytes # 0.6 K/mm3 (0.1-1.0); Monocytes % 5.9 % (1.7-9.3); Neutrophils # 5.6 K/mm3 (1.8-7.8); Neutrophils % 59.9 % (37.0-80.0); Platelet Count 379 K/mm3 (142-424); Red Blood Count 4.48 M/mm3 (4.20-5.40); White Blood Count 9.3 K/mm3 (4.8-10.8)
[2023-04-01 18:49] LABS: Alanine Aminotransferase 14 U/L (12-78); Albumin Level 4.3 g/dl (3.5-5.0); Albumin/Globulin Ratio 1.4 (1.1-1.8); Alkaline Phosphatase 95 U/L (38-126); Anion Gap 10.2 mEq/L (5-15); Aspartate Amino Transferase 22 U/L (14-36); Bilirubin,Total 0.2 mg/dl (0.2-1.3); Blood Urea Nitrogen 10 mg/dl (7-17); Calcium 9.2 mg/dl (8.4-10.2); Carbon Dioxide 27 mmol/L (22.0-30.0); Chloride 102 mmol/L (98-107); Chol/HDL Ratio 5.5 (1-3.5); Cholesterol 197 mg/dl (140-200); Estimated Glomerular Filt Rate 110 ml/min (>60); GFR (African American) 133 ML/MIN (>60); Globulin 3.1 g/dL (1.3-3.2); Glucose 88 mg/dl (74-100); HDL Cholesterol 36 mg/dl (40-60); Potassium 4.2 mmoL/L (3.5-5.1); Sodium 135 mmol/L (136-145); Total Protein,Serum 7.4 g/dl (6.3-8.2); Triglycerides 156 mg/dl (30-150); VLDL Cholesterol 31 mg/dL (0-40)
[2023-04-01 19:40] LABS: Thyroid Stimulating Hormone 2.08 uIU/mL (0.465-4.68)
[2023-04-01 20:06] LABS: Amphetamine/Metha Screen,Urine Negative ng/ml (<1000)
[2023-04-01 20:09] LABS: Barbiturates Screen,Urine Negative ng/ml (<200)
[2023-04-01 20:10] LABS: Benzodiazepines Screen,Urine Negative ng/ml (<200); Cocaine Screen,Urine Negative ng/ml (<300)
[2023-04-01 20:11] LABS: Methadone Screen,Urine Negative ng/ml (<300)
[2023-04-01 20:12] LABS: Opiate Screen,Urine Positive ng/ml (<300)
[2023-04-01 20:14] LABS: Phencyclidine Screen,Urine Negative ng/ml (<25)
[2023-04-01 20:20] LABS: Cannabinoid Screen,Urine Negative ng/ml (<50)
[2023-04-01 20:24] LABS: Microalbumin/Creatinine Ratio 5.8
[2023-04-01 20:33] LABS: 25-OH Vitamin D, Total 24.2 ng/mL (30-100)
[2023-04-01 20:37] LABS: Creatinine,Urine Random 142 mg/dL (Not Estab.)
== END ==
PROVIDERS: PCP Internal Medicine; Visit Provider Internal Medicine
DX: Z00.00 Encounter for general adult medical examination without abnormal findings (principal); Z79.899 Other long term (current) drug therapy; E55.9 Vitamin D deficiency, unspecified; Z68.21 Body mass index [BMI] 21.0-21.9, adult
CPT/HCPCS: 80053; 80061; 80305; 82043; 82306; 82570; 84443; 85025

== ENCOUNTER 2023-05-04 12:25 | Outpatient (CLI) | payer OTHER, SELFPAY ==
[2023-05-04 13:15] LABS: Amphetamine/Metha Screen,Urine Negative ng/ml (<1000); Barbiturates Screen,Urine Negative ng/ml (<200)
[2023-05-04 13:17] LABS: Cocaine Screen,Urine Negative ng/ml (<300)
[2023-05-04 13:18] LABS: Methadone Screen,Urine Negative ng/ml (<300)
[2023-05-04 13:19] LABS: Opiate Screen,Urine Positive ng/ml (<300)
[2023-05-04 18:41] LABS: Benzodiazepines Screen,Urine Negative ng/ml (<200); Cannabinoid Screen,Urine Negative ng/ml (<50); Phencyclidine Screen,Urine Negative ng/ml (<25)
[2023-05-07 17:14] LABS: Gabapentin,Urine Negative (.)
[2023-05-12 08:32] LABS: Alprazolam Negative (Cutoff=100); Benzodiazepines Negative ng/mL (Cutoff=100); Clonazepam Negative (Cutoff=100); Codeine Negative (Cutoff=100); Flurazepam Negative (Cutoff=100); Hydrocodone Positive (.); Hydromorphone Positive (.); Lorazepam Negative (Cutoff=100); Midazolam Negative (Cutoff=100); Morphine Negative (Cutoff=100); Opiates Positive (.); Oxycodone (GC/MS) 727 ng/mL (Cutoff=100); Oxymorphone (GC/MS) 1609 ng/mL (Cutoff=100); Temazepam Negative (Cutoff=100); Triazolam Negative (Cutoff=100)
== END 2023-05-04 23:59 ==
LOC: LAB.DROPOF 12:26
PROVIDERS: PCP Family Medicine; Visit Provider Family Medicine
DX: Z79.899 Other long term (current) drug therapy (principal)
CPT/HCPCS: 80307; 80346; 80361; 80365; G0480

== ENCOUNTER 2023-06-01 08:42 | Outpatient (CLI) | payer OTHER, SELFPAY ==
--- NOTE | 2023-06-01 08:43 | XR_ITS ---
FINAL REPORT TECHNIQUE: Bone densitometry calculations of the lumbar spine and left hip were obtained. CLINICAL HISTORY: Osteopenia COMPARISON: None FINDINGS: Using L1-4, the bone mineral density of the spine is 0.861 g/cm2, corresponding to T-score of -1.7 and a Z score of -1.4. This is within the range of osteopenia. Using the left hip, the bone mineral density of the femoral neck is 0.633 g/cm2, corresponding to a T-score of -1.9 and a Z-score of -1.4. This is within the range of osteopenia. NOTE: T-score: Standard deviation compared with peak bone mass of young adult mean. *Following the recommendations of the International Society of Bone densitometry, classification of hip BMD is based on the lower of two T-scores; total hip or femoral neck. IMPRESSION: 1. Bone mineral density of the lumbar spine within the range of osteopenia. 2. Bone mineral density of the left femoral neck within the range of osteopenia. Reviewed, Interpreted and Dictated by Monty Degroot MD Transcribed by Dianne Lopez Authenticated and [facility]
== END 2023-06-01 23:59 ==
LOC: RAD 08:43
PROVIDERS: PCP Family Medicine; Visit Provider Internal Medicine
DX: M85.89 Other specified disorders of bone density and structure, multiple sites (principal)
CPT/HCPCS: 77080

== ENCOUNTER 2023-08-12 09:47 | Outpatient (RCR) | payer OTHER, SELFPAY | END 2023-08-12 11:00 | disposition home or self-care (01) | LOC: PT 09:47 | PROVIDERS: Visit Provider Anesthesiology | DX: M54.50 Low back pain, unspecified (principal) | CPT/HCPCS: 97110; 97163 ==

== ENCOUNTER 2024-04-04 20:12 | Emergency (ER) | payer SELFPAY ==
[2024-04-04 20:13] VITALS: BP 142/98; BP 145/79; PULSE 84; PULSE 97; RESP 16; RESP 18; TEMP 36.6; O2SAT 97; O2SAT 99; BMI 21.9; BMI 31.4
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
[2024-04-04 20:30] VITALS: BP 125/92; PULSE 83; O2SAT 98
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
[2024-04-04] MEDS: IBUPROFEN 400 MG TABLET 800 MG PO (20:51)
[2024-04-04] MEDS: ACETAMINOPHEN 500MG TAB 1000 MG PO (20:51)
[2024-04-04 21:49] VITALS: BP 125/92; PULSE 83; RESP 16; TEMP 36.6; O2SAT 98
== END 2024-04-04 21:54 | disposition home or self-care (01) ==
PROVIDERS: Emergency Provider Emergency Medicine; PCP Internal Medicine
DX: S32.402A Unspecified fracture of left acetabulum, initial encounter for closed fracture (principal); M25.552 Pain in left hip; V89.2XXA Person injured in unspecified motor-vehicle accident, traffic, initial encounter; Y93.89 Activity, other specified; Y92.488 Other paved roadways as the place of occurrence of the external cause
CPT/HCPCS: 73502; 99283

== ENCOUNTER 2024-04-08 01:01 | Emergency (ER) | payer SELFPAY ==
[2024-04-08 01:03] VITALS: BP 140/80; PULSE 85; RESP 18; TEMP 37; O2SAT 97; BMI 23.6
[2024-04-08] MEDS: HYDROCODONE/APAP 5/325 MG TABLET 1 TAB PO (02:47)
[2024-04-08 03:11] VITALS: BP 143/62; PULSE 83; RESP 18; TEMP 37.1; O2SAT 98
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
== END 2024-04-08 03:12 | disposition home or self-care (01) ==
PROVIDERS: Emergency Provider Emergency Medicine
DX: M54.32 Sciatica, left side (principal); S32.402A Unspecified fracture of left acetabulum, initial encounter for closed fracture; M25.552 Pain in left hip
CPT/HCPCS: 99283

== ENCOUNTER 2024-05-05 13:36 | Outpatient (CLI) | payer OTHER, SELFPAY ==
--- NOTE | 2024-05-05 13:37 | CT_ITS ---
FINAL REPORT TECHNIQUE: Axial images through the pelvis were performed by computed tomography. Reconstructed images were obtained and reviewed. This study was performed with techniques to keep radiation doses as low as reasonably achievable, (ALARA). Individualized dose reduction techniques using automated exposure control or adjustment of mA and/or kV according to the patient's size were employed. CLINICAL HISTORY: .PELVIC FX FINDINGS: The hip joint spaces are well-preserved. The femoral heads demonstrate normal smooth contour. There is a small os acetabuli on the left. No definite fracture is identified. The sacroiliac joints are intact. IMPRESSION: No evident fracture identified. Small os acetabuli on the left. Reviewed, Interpreted and Dictated by Monty Degroot MD Transcribed by Delaney Piña Authenticated and . [facility]
== END 2024-05-05 23:59 | disposition home or self-care (01) ==
LOC: RAD 13:37
PROVIDERS: PCP Internal Medicine; Visit Provider Physician Assistant
DX: R10.2 Pelvic and perineal pain (principal); S32.402A Unspecified fracture of left acetabulum, initial encounter for closed fracture
CPT/HCPCS: 72192